=== PATIENT | female | born 1950 | race Caucasian/White ===

== ENCOUNTER 2022-06-30 12:41 | Emergency (ER) | payer MEDICARE, BC, SELFPAY ==
[2022-06-30 12:59] VITALS: BP 128/63; PULSE 70; RESP 14; TEMP 36.4; O2SAT 98; BMI 27.4
--- NOTE | 2022-06-30 13:14 | ED_ITS ---
HPI - Chest Pain General Chief Complaint: Chest Pain Stated Complaint: Chest pain Time Seen by Provider: 06/30/22 12:47 History of Present Illness HPI narrative: This 71-year-old female went to clinic this morning reporting some chest discomfort that occurred in the night and was sent here for further evaluation and treatment. She states that she awoke and felt some pain in her left upper anterior chest. She fell back asleep may be half an hour later and since then has not had any pain except she feels some discomfort or heaviness in this area. She did not have any nausea, vomiting, lightheadedness, shortness of breath, or diaphoresis. She does not have any exercise intolerance. She did have a stroke a couple years ago and is taking Eliquis. She also has a pacemaker. Related Data Home Medications Medication Instructions Recorded Confirmed apixaban 5 mg tablet (Eliquis) mg 06/30/22 aspirin 81 mg capsule 81 mg PO DAILY 06/30/22 06/30/22 atorvastatin 10 mg tablet mg 06/30/22 sotalol 80 mg tablet mg 06/30/22 Allergies Allergy/AdvReac Type Severity Reaction Status Date / Time No Known Drug Allergies Allergy Verified 06/30/22 12:58 Review of Systems Status of ROS Reports: 10 or more systems reviewed and unremarkable except as noted in History and below Narrative Constitutional: No fevers, no weight gain or loss. Eyes: No discharge. No vision changes. HENT: No congestion, no sore throat, no ear pain. Cardiovascular: No palpitations. Chest: Discomfort in the left upper anterior chest as described above. Respiratory: No shortness of breath, no wheezes, no cough. Gastrointestinal: No abdominal pain, no vomiting, no diarrhea. Genitourinary: No dysuria, no hematuria. Musculoskeletal: Normal range of motion. Skin: No rashes, no pruritis. Neurological: No dizziness, weakness, sensory change, speech change. Endo/Heme/Allergies: No bruising or bleeding. No polydipsia. Pysch: no suicidality, no anxiety, no insomnia. All other systems reviewed and are negative. PFSH PFS Social History Smoking Status: Never smoker Non-prescribed substance use: denies use Exam Narrative Exam Narrative: Constitutional: Well-developed, well-nourished, no acute distress. HEENT: Normocephalic, atraumatic. Neck: Normal range of motion. Nontender. Supple. Heart: Regular. No murmurs. Normal rate. Intact distal pulses. Lungs: Clear to auscultation. No chest discomfort. No wheezes, rhonchi, or rales. Abdomen: Normal bowel sounds. Nontender. No rebound tenderness. Genitalia: Deferred. Back: No midline tenderness. Normal range of motion. Extremities: Normal range of motion. No injury. Skin: Intact. No rash. Warm. No erythema or pallor. Neurologic: No altered sensation. No weakness. Alert and oriented. Psychiatric: No suicidality. No anxiety or depression. No insomnia. Nursing notes and vitals signs are reviewed. Const Vital Signs, click to edit/add: Vital Signs - 24 hr 06/30/22 12:59 Temperature 97.5 F L Pulse Rate [Pulse Oximeter] 70 Respiratory Rate 14 Blood Pressure [Right Upper Arm] 128/63 Pulse Oximetry 98 Oxygen Delivery Method Room Air Course Vital Signs Vital signs: Initial Vital Signs Temperature 97.5 F L 06/30/22 12:59 Temperature Source Temporal Artery Scan 06/30/22 12:59 Pulse Rate 70 06/30/22 12:59 Pulse Rhythm 06/30/22 12:59 Respiratory Rate 14 06/30/22 12:59 Blood Pressure 128/63 06/30/22 12:59 Blood Pressure Mean 84 06/30/22 12:59 Pulse Oximetry 98 06/30/22 12:59 Oxygen Delivery Method 06/30/22 12:59 Vital Signs Temperature 97.5 F L 06/30/22 12:59 Pulse Rate 70 06/30/22 12:59 Respiratory Rate 14 06/30/22 12:59 Blood Pressure 128/63 06/30/22 12:59 Pulse Oximetry 98 06/30/22 12:59 Oxygen Delivery Method 06/30/22 12:59 Temperature 97.5 F L 06/30/22 12:59 Pulse Rate 70 06/30/22 12:59 Respiratory Rate 14 06/30/22 12:59 Blood Pressure 128/63 06/30/22 12:59 Pulse Oximetry 98 06/30/22 12:59 Oxygen Delivery Method 06/30/22 12:59 MDM - Chest Pain MDM Narrative Medical decision making narrative: This patient comes in with chest discomfort as described above. She does not have any symptoms that are strongly suspicious of a cardiac or pulmonary source for this. She is on Eliquis for a stroke that occurred a couple years ago. Since then she has been doing well. She does have a pacemaker. She does not report any exercise intolerance. Her EKG today shows a paced rhythm without any evidence of ST or T-wave abnormalities. Additionally her lab results returned completely normal. In particular her troponin is 0. These results are reassuring to the patient. Most likely this is a chest wall pain or atypical chest pain. She states that she did lift a 40 lb bag of water softener salt recently and may have cause some muscle strain that explains her pain currently. Lab Data Labs: Lab Results 06/30/22 06/30/22 06/30/22 Range/Units 13:25 13:25 13:25 WBC 7.99 (4.50-11.00) K/uL RBC 4.28 (4.00-5.20) m/uL Hgb 12.9 (12.0-16.0) gm/dL Hct 39.3 (33.0-51.0) % MCV 92 (80-100) fL MCH 30 (26-34) pg MCHC 33 (32-36) gm/dL RDW Coeff of Kal 12.2 (11.5-15.5) % Plt Count 255 (140-440) K/uL Neut % (Auto) 52.7 (42.0-72.0) % Lymph % (Auto) 32.8 (20-44) % [place] % (Auto) 9.9 (0.0-11.0) % Eos % (Auto) 3.9 (0.0-7.0) % Baso % (Auto) 0.4 (0.0-3.0) % Neut # (Auto) 4.22 (1.7-7.0) K/uL Lymph # (Auto) 2.62 (0.90-2.90) K/uL [place] # (Auto) 0.80 (0.00-0.90) K/UL Eos # (Auto) 0.31 (0.00-0.50) K/uL Baso # (Auto) 0.03 (0.00-0.30) K/uL Abs Immat Gran (auto) 0.02 (0.00-0.30) K/uL Imm/Tot Granulo (auto) 0.3 % Sodium 142 (135-149) mmol/L Potassium 4.8 (3.6-5.1) mmol/L Chloride 110 (96-114) mmol/L Carbon Dioxide 27 (20-32) mmol/L Creatinine 0.7 (0.5-1.5) mg/dL Estimated Creat Clear 41.40 Estimated GFR 93 ml/min POC Troponin I 0.00 L (0.01-0.04) ng/ml ECG Data Attestation: I personally reviewed and interpreted this ECG as follows: Interpretation: Atrial paced rhythm. Rate is 70 beats per minute. There are no ST or T-wave abnormalities. Discharge Plan Discharge Clinical Impression: Acute chest wall pain Patient Disposition: Home, Self-Care Condition: Stable Additional Instructions: Use [id number] medicines as needed and directed. Follow up with MD or return if worsening. Prescriptions: No Action atorvastatin 10 mg tablet Label Comments: TAKE 1 TABLET (10 MG) BY MOUTH AT BEDTIME. sotalol 80 mg tablet Label Comments: TAKE ONE TABLET BY MOUTH (80MG) EVERY 12 HOURS Eliquis 5 mg tablet aspirin 81 mg capsule 81 mg PO DAILY Follow Up/Referrals: Provider,Not a Local [Primary Care Provider] - Stand Alone Forms: [facility] Info Instructions
--- OUTSIDE RECORDS SUMMARY | 2022-06-30 13:25 | XMS_ITS | Clinical Summary ---
:1950 Author Organization [facility] [place] [address] Care Team Providers Name Role Phone Jordana Huddleston MD Primary Care Provider Allergies No known active allergies Medications Medication Sig Dispensed Refills Start Date End Date Status cholecalciferol Take 2,000 Units by 0 Active (VITAMIN D3) 1,000 mouth once daily. unit tablet acetaminophen Take 2 tablets by 0 01/18/2020 Active (TYLENOL) 325 mg mouth every 6 hours tablet if needed. Max acetaminophen dose: 4000mg in 24 hrs. aspirin (ECOTRIN) 81 Take 1 tablet by 0 04/29/2020 Active mg enteric coated mouth once daily tabletIndications: with a meal. Paroxysmal atrial fibrillation (HC) sotaloL (BETAPACE) 80 Take 1 Tablet (80 180 Tablet 2 2 Active mg tabletIndications: mg) by mouth in the Atrial fibrillation morning and 1 and flutter (HC) Tablet (80 mg) in the evening. atorvastatin Take 1 Tablet (10 90 Tablet 4 04/19/2022 Active (LIPITOR) 10 mg mg) by mouth at tabletIndications: bedtime. Ischemic stroke (HC) apixaban (Eliquis) 5 Take 1 Tablet (5 180 Tablet 4 04/19/2022 Active mg tabletIndications: mg) by mouth two Rapid atrial times daily. fibrillation (HC) Active Problems Problem Noted Date RBBB (right bundle branch block) 2020 Sinus node dysfunction 2020 Cardiac pacemaker 2020 Occlusion of intracranial artery with cerebral infarct ion 01/14/2020 Atrial fibrillation with rapid ventricular response Hemiparesis, left 01/14/2020 Special screening for malignant neoplasms, colon 06/24 Overview: 11 years from last colonoscopy - decline s repeat - will do FOBT this year. Jordana Huddleston MD............ 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 Disorder of bone and cartilage 07/03/2006 Overview: Encounters Date Type Specialty Care Team Description 04/19/2022 Office Visit Jordana Huddleston M anagement; Lab MD Carine (Patient is idalmis sanchez) 04/19/2022 Travel from Last 3 Months Immunizations Name Administration Dates Next Due COVID-19 vaccine (Moderna 06/01/2021, 08/28/2020 100mcg/0.5mL) PF, MDV Influenza A (H1N1), Inactivated (Age 0107/24/2009 >=3 Years) Influenza Virus, Unspecified 05/06/2016, 05/22/2015 Influenza, High-dose Inactivated 05/12/2021, 05/03/2020, , 05/09/2018 Influenza, IIV3 (Age >=3 years) 05/06/2016, 05/16/2014, 11/0 08/2012, 04/29/2012, 05/12/2011, 04/25/2010, 04/22/2009, 05/01/2008, 07/03/2006 Influenza, Inactivated IIV3 (Age 65+ 05/13/2019, 04/18/2017 Years) Preserv Free Pneumococcal Poly,23-Valent 07/22/2018, 07/04/2018 (Pneumovax) Pneumococcal conj 13-Valent (Prevnar 07/18/2017 13) Td (Age >=7 Years) 02/26/1997 Tdap 02/23/2021, 08/18/2008 Zoster (Shingrix-RZV, recombinant) 11/27/2018, 08/01/2018, 0 10/21/2017, 07/23/2017 Zoster (Zostavax-ZVL, live) 04/29/2012 Family History Medical History Relation Name Comments Hypertension Father Other Maternal Uncle brain aneurysm - age 45 Other Mother brain aneurysm - age 67 Cancer No Family History Cancer-breast No Family History Cancer-colon No Family History Cancer-ovarian No Family History Cancer-prostate No Family History Relation Name Status Comments Father Maternal Uncle Mother Social History Tobacco Use Types Packs/Day Years Used Date Never Smoker Smokeless Tobacco: Never Used Tobacco Cessation: Counseling Given: Yes Alcohol Use Standard Drinks/Week Comments Not Currently 0 (1 standard drink = 0.6 oz pure alcoho l) rare Alcohol Habits Answer Date Recorded How often do you have a drink containing alcohol? Monthly or less 12/18/2019 How many drinks containing alcohol do you have on a 1 or 2 12/18/2019 typical day when you are drinking? How often do you have six or more drinks on one Never 12/18/2019 occasion? Comment: rare 02/23/2021 Sex Assigned at Date Recorded Not on file Obstetrics History Para Term AB IAB SAB Ectopic Multiple Living Live Births 2 2 2 2 Date Outcome GA Total Labor/2nd/3rd Weight Sex Delivery Anes PTL Silvia A 1 A5 Name Clin Labor Term Term Last Filed Vital Signs Vital Sign Reading Time Taken Comments Blood Pressure 126/84 04/19/2022 10:48 AM CDT Pulse 78 04/19/2022 10:48 AM CDT Temperature 36.4 ??C (97.6 ??F) 09/30/2020 9:37 AM TELERADIOLOGIST Respiratory Rate 14 2020 6:34 AM TELERADIOLOGIST Oxygen Saturation 98% 10/20/2021 2:09 PM CDT Inhaled Oxygen Concentration - - Weight 70.7 kg (155 lb 12.8 oz) 04/19/2022 10:48 AM CDT Height 156.1 cm (5' 1.46) 10/20/2021 2:09 PM CDT Body Mass Index 29 10/20/2021 2:09 PM CDT Plan of Treatment Upcoming Encounters Date Type Specialty Care Team Description 10/12/2022 Cardiac Device Check 10/12/2022 Office Visit Juwan Meehan MD [address] [facility] [address] [place] [address] (Wo rk) Health Maintenance Due Date Last Done Comments COVID-19 vaccine series (5 - 12/29/2021 11/03/2021, 021, Booster for Moderna series) 09/25/2020, Addition al history exists Mammogram for age 45-75 02/22/2022 02/22/2021, 05/01/2018, 04/18/2017, Additional history exists Medicare Wellness for age 65+ 02/23/2022 02/23/2021, 2017, 04/18/2017 Influenza for age 65+ 03/23/2022 05/12/2021, 05/03/2020, 05/15/2019, Additional history exists BMI (ht and wt on same day) for 10/20/2022 10/20/2021, 08/0 10/2020, age 18+ 09/30/2020, Additional history exists Depression screening for age 12+ 04/19/2023 04/19/2022, 10/2020, 02/23/2021, Additional history exists Lipids for age 45-75 04/19/2027 04/19/2022, 02/23/2021, 01/15/2020, Additional history exists Tetanus booster 02/23/2031 02/23/2021, 08/18/2008, 02/26/1997 Colonoscopy through age 75 04/12/2031 04/12/2021, , 04/12/2021, Additional history exists Hepatitis C screening for age Completed 06/11/2013 18-79 Pneumococcal series for age 65+ Completed 07/22/2018, 06/22, 07/18/2017 Zoster (shingles) series for age Completed 11/27/2018, 04/2019, 50+ 10/21/2017, Additional history exists Tdap Completed 02/23/2021, 08/18/2008 DEXA/DXA scan for age 65+ Completed 03/02/2021, 03/27/2017 , 06/11/2013, Additional history exists Procedures Procedure Name Priority Date/Time Associated Diagnosis Comme nts LIPID PANEL Routine 04/19/2022 11:55 Ischemic stroke (HC) Res ults for this AM CDT procedure are i n the results section. HEMOGLOBIN A1C Routine 04/19/2022 11:55 Hyperglycemia Results for this SCREENING AM CDT procedure are i n the results section. ALT (SGPT) Routine 04/19/2022 11:55 Paroxysmal atrial Result s for this AM CDT fibrillation (HC) procedure are in the results section. AST (SGOT) Routine 04/19/2022 11:55 Paroxysmal atrial Result s for this AM CDT fibrillation (HC) procedure are in the results section. CREATININE Routine 04/19/2022 11:55 Paroxysmal atrial Result s for this AM CDT fibrillation (HC) procedure are in the results section. BUN Routine 04/19/2022 11:55 Paroxysmal atrial Result s for this AM CDT fibrillation (HC) procedure are in the results section. POTASSIUM Routine 04/19/2022 11:55 Paroxysmal atrial Result s for this AM CDT fibrillation (HC) procedure are in the results section. from Last 3 Months Results HEMOGLOBIN A1C SCREENING (04/19/2022 11:55 AM CDT) P athologist Signature HEMOGLOBIN A1C 5.6 <=6.4 % 04/20/2022 [facility] SCREENING 9:20 AM CDT LABORATORY[facility] Specimen Anatomical Collection Method / Collection Time Recei jorgito Time (Source) Location / Volume Laterality Blood BLOOD SPECIMEN / Venipuncture / 04/19/2022 11:55 04/19 Unknown Unknown AM CDT 11:55 AM CDT Narrative [facility] 04/20/2022 9:20 AM CDT ? (<5.7%) ?Normal ? (5.7% to 6.4%) ? Indicates pr ediabetes ? (>=6.5%) ? Confirms diabetes Falsely low levels may be seen with: Recent Transfusion, Recent Significant B lood Loss, Hemolytic Diseases, or Falsely elevated levels may be seen with : Untreated Anemias, Splenectomy Jordana Huddleston MD CHEMISTRY Performing Organization Address City/State/ZIP Code Phon e Number [facility] [address] [place] [address] LABORATORY-[facility] LABORATORY BUN (04/19/2022 11:55 AM CDT) athologist Signature BUN 18 8 - 25 04/19/2022 [facility] mg/dL 12:52 PM CDT [facility] Specimen Anatomical Collection Method / Collection Time Recei jorgito Time (Source) Location / Volume Laterality Blood BLOOD SPECIMEN / Venipuncture / 04/19/2022 11:55 04/19 Unknown Unknown AM CDT 11:55 AM CDT Juwan Meehan MD CHEMISTRY Performing Organization Address City/State/ZIP Code Phon e Number [address] [address] CENTER POTASSIUM (04/19/2022 11:55 AM CDT) athologist Signature POTASSIUM 4.6 3.5 - 5.0 04/19/2022 [facility] mmol/L 12:44 PM CDT [facility] Specimen Anatomical Collection Method / Collection Time Recei jorgito Time (Source) Location / Volume Laterality Blood BLOOD SPECIMEN / Venipuncture / 04/19/2022 11:55 04/19 Unknown Unknown AM CDT 11:55 AM CDT Juwan Meehan MD CHEMISTRY Performing Organization Address City/State/ZIP Code Phon e Number [address] [address] CENTER (ABNORMAL) CREATININE (04/19/2022 11:55 AM CDT) athologist Signature CREATININE 0.82 0.57 - 1.11 04/19/2022 [facility] mg/dL 12:50 PM CDT [facility] eGFR 77 (L) >90 04/19/2022 [facility] mL/min/1.73 12:50 PM CDT [place] [address] CENTER Comment: As of 2021, eGFR is calcu lated by the CKD-EPI creatinine equation without race adjustment. eGFR can be inf luenced by muscle mass, exercise, and diet. The reported eGFR is an estimation only and is only applicable if the renal function is stable. Specimen Anatomical Collection Method / Collection Time Recei jorgito Time (Source) Location / Volume Laterality Blood BLOOD SPECIMEN / Venipuncture / 04/19/2022 11:55 04/19 Unknown Unknown AM CDT 11:55 AM CDT Juwan Meehan MD CHEMISTRY Performing Organization Address City/[facility]/ZIP Code Phon e Number [address] [address] CENTER ALT (SGPT) (04/19/2022 11:55 AM CDT) athologist Signature ALT (SGPT) 16 8 - 45 IU/L 04/19/2022 [facility] 12:53 PM CDT [facility] Specimen Anatomical Collection Method / Collection Time Recei jorgito Time (Source) Location / Volume Laterality Blood BLOOD SPECIMEN / Venipuncture / 04/19/2022 11:55 04/19 Unknown Unknown AM CDT 11:55 AM CDT Juwan Meehan MD CHEMISTRY Performing Organization Address City/[facility]/ZIP [facility] Phon e Number [address] [address] CENTER AST (SGOT) (04/19/2022 11:55 AM CDT) athologist Signature AST (SGOT) 20 2 - 40 IU/L 04/19/2022 [facility] 12:52 PM CDT [facility] Specimen Anatomical Collection Method / Collection Time Recei jorgito Time (Source) Location / Volume Laterality Blood BLOOD SPECIMEN / Venipuncture / 04/19/2022 11:55 04/19 Unknown Unknown AM CDT 11:55 AM CDT Juwan Meehan MD CHEMISTRY Performing Organization Address City/[facility]/ZIP [facility] Phon e Number [address] [address] CENTER LIPID PANEL (04/19/2022 11:55 AM CDT) [facility] Method Time Signature CHOLESTEROL,TOTAL 120 100 - 199 04/19/2022 [facility] mg/dL 12:53 PM CDT [facility] TRIGLYCERIDES 72 <150 04/19/2022 [facility] mg/dL 12:53 PM CDT [facility] HDL CHOLESTEROL 53 >40 mg/dL 04/19/2022 [facility] 12:53 PM T [facility] NON-HDL 67 <145 04/19/2022 [facility] CHOLESTEROL mg/dl 12:53 PM [facility] CHOL/HDL RATIO 2.26 <4.50 04/19/2022 [facility] 12:53 PM T [facility] LDL CHOLESTEROL 53 <=130 04/19/2022 [facility] mg/dL 12:53 PM T [facility] VLDL CHOLESTEROL 14 <=30 04/19/2022 [facility] mg/dL 12:53 PM T [facility] PROVIDER ORDERED FASTING 04/19/2022 [facility] STATUS 12:53 PM T [facility] Specimen Anatomical Collection Method / Collection Time Recei jorgito Time (Source) Location / Volume Laterality Blood BLOOD SPECIMEN / Venipuncture / 04/19/2022 11:55 04/19 Unknown Unknown AM CDT 11:55 AM CDT Jordana Huddleston MD CHEMISTRY Performing Organization Address City/State/ZIP Code Phon e Number [facility] [address] [place] [address] CENTER from Last 3 Months Insurance Payer Benefit Plan / Subscriber ID Effective Dates Phone Addre ss Type Group MEDICARE PART B MEDICARE PART B [id number] 2016-Presen ATTN: CLAIMS - HB USE ONLY HB ONLY t [address] [place] [address] MEDICARE PART A MEDICARE PART A [id number] 2016-Presen ATTN: CLAIMS - HB USE ONLY HB ONLY t [address] [place] [address] [employer] BLUE CROSS [id number] 2017-[place] [address] [place], [place] ONLY [id number] BLUE CROSS MR BLUE CROSS [id number] 2017-Presen [address] [address] [place] [address] [id number] Advance Directives Documents on File Type Date Recorded Patient Materials Handler Explanati on Healthcare Directive 08/24/2010 08/24/2010 Latest Code Status on File Code Status Date Activated Date Inactivated Comments Full Code 08/09/2020 4:30 PM 2020 4:12 PM Code Status Discussion: Discussed Full Code 04/21/2020 2:23 PM 04/21/2020 5:51 PM Code Status Discussion: Per Existing Order Full Code 04/06/2020 4:06 PM 04/07/2020 3:01 PM Code Status Discussion: Discussed Full Code 01/15/2020 4:02 PM 01/18/2020 9:25 PM Care Teams Form Setter/Driver Relationship Specialty Start Date End Date Jordana Huddleston MD PCP - General 07/02/06 [address] [place] [address] [place] [address]
[2022-06-30 13:49] LABS: Basophils Absolute Auto 0.03 K/uL (0.00-0.30); Basophils Percent Auto 0.4 % (0.0-3.0); Eosinophils Absolute Auto 0.31 K/uL (0.00-0.50); Eosinophils Percent Auto 3.9 % (0.0-7.0); Hematocrit 39.3 % (33.0-51.0); Hemoglobin* 12.9 gm/dL (12.0-16.0); Immature Granulocytes Abs Auto 0.02 K/uL (0.00-0.30); Immature Granulocytes Pct Auto 0.3 %; Lymphocytes Absolute Auto 2.62 K/uL (0.90-2.90); Lymphocytes Percent Auto 32.8 % (20-44); Mean Corpuscular HGB Conc 33 gm/dL (32-36); Mean Corpuscular Hemoglobin 30 pg (26-34); Mean Corpuscular Volume 92 fL (80-100); Monocytes Percent Auto 9.9 % (0.0-11.0); Neutrophils Absolute Auto 4.22 K/uL (1.7-7.0); Neutrophils Percent Auto 52.7 % (42.0-72.0); Platelet Count* 255 K/uL (140-440); RDW Coefficient of Variation % 12.2 % (11.5-15.5); Red Blood Count 4.28 m/uL (4.00-5.20); White Blood Count* 7.99 K/uL (4.50-11.00)
[2022-06-30 13:53] LABS: Slide Review Reflex No
[2022-06-30 14:00] LABS: Chloride* 110 mmol/L (96-114); Potassium* 4.8 mmol/L (3.6-5.1); Sodium* 142 mmol/L (135-149)
[2022-06-30 14:03] LABS: Blood Urea Nitrogen* 18 mg/dL (7-30); Carbon Dioxide* 27 mmol/L (20-32); Creatinine* 0.7 mg/dL (0.5-1.5); Estimated Glomerular Filt Rate 93 ml/min; Glucose* 86 mg/dL (60-115)
[2022-06-30 14:04] LABS: Calcium* 9.6 mg/dL (8.4-10.6)
[2022-06-30 14:10] VITALS: BP 112/62; PULSE 70; RESP 16; O2SAT 97
== END 2022-06-30 14:27 | disposition home or self-care (01) ==
PROVIDERS: Emergency Provider Emergency Medicine Emergency Medical Services
DX: R07.89 Other chest pain (principal)
CPT/HCPCS: 36415; 80048; 84484; 85025; 93005; 99284; 99285

== ENCOUNTER 2023-05-02 11:59 | Outpatient (CLI) | payer MEDICARE, BC, SELFPAY ==
[2023-05-02] MEDS: TETRACAINE 0.5% OPHTH 1 DROP EYE-LEFT ×3 (12:15→12:51)
[2023-05-02] MEDS: BRIMONIDINE TARTRATE 0.2% OPHTH 1 DROP EYE-LEFT ×2 (12:16→12:55)
[2023-05-02 12:17] VITALS: BP 119/67; RESP 16; TEMP 36.4; O2SAT 97
--- NOTE | 2023-05-02 13:14 | W.PM.OPTPROC ---
Procedure Note Date of procedure: 05/02/23 Will [facility] bill your pro fee for this procedure?: Yes Procedure Description: SURGEON: Cary Alejandro MD PREOPERATIVE DIAGNOSIS: Posterior capsular opacity, left eye POSTOPERATIVE DIAGNOSIS: Posterior capsular opacity, left eye PROCEDURE: YAG laser capsulotomy, left eye ANESTHESIA: Topical. ESTIMATED BLOOD LOSS: None PATHOLOGY SPECIMEN: None COMPLICATIONS: None INDICATIONS: See consult note for details. The risks, benefits and alternatives of the procedure were explained to the patient, who elected to proceed and signed informed consent to do so. PROCEDURE: The patient was brought to the pre-holding area where the left eye was identified as the operative eye. I placed my initials above this eye. The patient received 2 sets of 1 drop of 0.5% tetracaine and 1 drop of 1% tropicamide. They also received 1 drop of 0.2% brimonidine. They received 1 drop of 0.5% tetracaine immediately prior to bringing them back for the procedure. The patient was then brought to the procedure room where the left eye was again identified as the operative eye. A YAG Rogelio capsulotomy lens was placed on the eye. The laser was administered using a total number of 8 shots with an energy of 2.4 mJ per shot for a total energy of 19 mJ. The patient tolerated the procedure well. DISPOSITION: The patient was taken back to the pre-holding area and given 1 drop of 0.2% brimonidine in the left eye. They were discharged to home in stable condition. The patient was instructed to call me or go to the emergency department with any sudden change, including dramatic loss of vision, severe pain in the eye or eyebrow region, nausea, or vomiting. The patient was instructed to use the 0.2% brimonidine 1 drop 2 times a day in the left eye for 1 week. The patient will follow up in the clinic in 1-2 weeks
== END 2023-05-02 13:02 | disposition home or self-care (01) ==
PROVIDERS: PCP Internal Medicine; Visit Provider Ophthalmology
DX: H26.9 Unspecified cataract (principal)
CPT/HCPCS: 66821; A9270

== ENCOUNTER 2023-10-10 12:28 | Outpatient (CLI) | payer MEDICARE, BC, SELFPAY | END 2023-10-10 12:29 | disposition home or self-care (01) | PROVIDERS: PCP Internal Medicine; Visit Provider Physician Assistant | DX: R22.0 Localized swelling, mass and lump, head (principal); R68.84 Jaw pain | CPT/HCPCS: 86735 ==

== ENCOUNTER 2025-05-09 06:43 | Emergency (ER) | payer MEDICARE, BC, SELFPAY ==
--- OUTSIDE RECORDS SUMMARY | 2003-06-09 08:30 | XMS_ITS | Continuity of Care Document ---
Author Organization [facility] Address [address] [address] [place] [address] Phone Care Team Providers Care Insurance Underwriting Assistant Name Role Phone Unavailable Unavailable Unavailable Advance Directives Directive Yes / No Effective Date File Name No Information Encounters Encounter Description Practice Location Reason(s) For Visit Diagnoses Date Provider Providers Copied on Encounter [facility], [address] [address], [place], [place], [id number], tel:[phone] [facility] No Information 3 No Information Referring Provider: Eulalia Woods MD, [address], [address]. tel:[phone] Family History Family Member Type Diagnosis Age At Onset No Information Payers Payer name Insurance type Covered republican ID Authoriza tion(s) [employer] CI [id number] Social History Type Description Quantity Date Captured Comments Sex Female Smoking Status No Information Chief Complaint And Reason For Visit No Information Reason For Referral Reason For Referral No Information History Of Present Illness Encounter Date Complaint History Of Prese nt Illness No Information Functional Status Date Functional Assessmen t No Information Instructions Date Instruction Additional Infor mation No Information Assessments Type Assessment Date No Information Patient Care Teams Name Effective Dates (start - stop) Status Members No Information
--- OUTSIDE RECORDS SUMMARY | 2003-06-09 08:30 | XMS_ITS | Continuity of Care Document ---
Author Organization [facility] Address [address] [address] [place] [address] Phone Care Team Providers Care Gizzard Peeler Name Role Phone Unavailable Unavailable Unavailable Advance Directives Directive Yes / No Effective Date File Name No Information Encounters Encounter Description Practice Location Reason(s) For Visit Diagnoses Date Provider Providers Copied on Encounter [facility], [address] [address], [place], [place], [id number], tel:[phone] [facility] No Information 3 No Information Referring Provider: Eulalia Woods MD, [address], [address]. tel:[phone] Family History Family Member Type Diagnosis Age At Onset No Information Payers Payer name Insurance type Covered green party ID Authoriza tion(s) [employer] CI [id number] Social History Type Description Quantity Date Captured [...]
--- OUTSIDE RECORDS SUMMARY | 2025-05-09 06:44 | XMS_ITS | Clinical Summary ---
Author Organization [facility] Address [address] [place] [address] Care Team Providers Care Hydraulic Boom Operator Name Role Phone Karen Greco MD Primary Care Provider [phone] Juwan Meehan MD Unavailable [phone] Allergies No known active allergies Medications cholecalciferol (VITAMIN D3) 1,000 unit tablet Take 2,000 Units by mouth once daily. Active acetaminophen (TYLENOL) 325 mg tablet Take 2 tablets by mouth every 6 hours if needed. Max acetaminophen dose: 4000mg in 24 hrs. 0 01/18/20 20 Active sotaloL 80 mg tabletIndication s:Paroxysmal atrial fibrillation (HC),Atrial fibrillation and flutter (HC) Take 0.5 Tablets (40 mg) by mouth every 12 hours. 90 Tablet 3 01/09/20 25 Active apixaban (Eliquis) 5 mg tabletIndication s:Paroxysmal atrial fibrillation (HC) Take 1 Tablet (5 mg) by mouth two times daily. 180 Tablet 3 01/09/20 25 Active atorvastatin (LIPITOR) 10 mg tabletIndication s:H/O ischemic right MCA stroke Take 1 Tablet (10 mg) by mouth at bedtime. 90 Tablet 3 04/08/20 25 Active Active Problems Problem Noted Date Diagnosed Date Osteopenia 03/13/2023 Overview (03/13/2023): 02/2021: DEXA scan with lowest T score -1.9 RBBB (right bundle branch block) 2020 Sinus node dysfunction, s/p pacemaker placement 2020 Cardiac pacemaker 2020 Occlusion of intracranial artery with cerebral i nfarction 01/14/2020 Special screening for malignant neoplasms, colon 06/24/2014 Overview (06/24/2014): 11 years from last colonoscopy - declines repeat - will do FOBT this year. Jordana Manuel MD............ 11:54 AM 06/24/2014 Paroxysmal atrial fibrillation 03/06/2008 Overview (03/04/2024): - First diagnosed in 2007 - Initially managed with propafenone. Transitioned to sotalol in 2012 due to right bundle branch block - 01/14/2020: Noted to be in atrial fibrillation at time of presentation for CVA - 01/17/2020: SP AAI pacemaker placement - 04/06/2020: SP catheter ablation for atrial fibrillation as well as typical atrial flutter - Recurrent atrial arrhythmias status post cardioversion 04/21/2020 (treated with sotalol, diltiazem, and digoxin) - SP re-isolation of the pulmonary veins 08/09/2020 Dysthymic disorder 11/26/2007 H/O ischemic right MCA stroke Overview (03/12/2023): Status post tPA administration and thrombectomy Resolved Problems Problem Noted Date Diagnosed Date Resolved Date Atrial fibrillation with rap id ventricular response 01/14/2020 03/13/2023 Hemiparesis, left 01/14/2020 03/15/2023 Vitamin D deficiency 09/08/2009 023 Palpitations 12/04/2007 03/13/2023 Other malignant neoplasm of skin, site unspecified 08/13/2007 03/13/2023 Overview (08/13/2007): 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 Disorder of bone and cartilage 07/03/2006 03/12/2023 Overview (09/08/2009): Encounters Date Type Department Care Team Description 04/08/2025 4:10 PM CDT Ancillary Procedure [facility] [address] [facility] [place] [address] 04/08/2025 2:10 PM CDT Office Visit [facility] [address] [facility] [place] [address] Karen Greco MD Medication Management 04/08/2025 Travel 04/06/2025 11:30 AM CDT Orders Only [facility] [address] [place] [address] Lab, [facility] 04/06/2025 Travel 03/17/2025 9:40 AM CDT Ancillary Procedure [facility] [address] [place] [address] 03/17/2025 Travel from Last 3 Months Immunizations Immunization Administration Dates Next Due COVID-19 vaccine (Moderna 100mcg/0.5mL) PFMDV 06/01/2021,08/28/2020 Influenza A (H1N1), Inactiva avani (Age >=3 Years) 07/24/2009 Influenza Virus, Unspecified 05/06/2016,05/22/20 15 Influenza, High-dose Inactivated 024,05/12/2021,05/03/2020,2018,05/09/2018 Influenza, High-dose Quadriv alent Inactivated 05/08/2023,05/05/2022,05/11/2021,2019 Influenza, IIV3 (Age >=3 years) 05/06/20 16,05/16/2014,05/24/2013,2011,05/12/2011,04/25/2010,04/22/2009,1 ,07/03/2006 Influenza, Inactivated IIV3 (Age 65+ Years) Preserv Free 05/13/2019,04/18/2017 Pneumococcal Poly,23-Valent (Pneumovax) 07/22/2018,07/04/2018 Pneumococcal conj 13-Valent (Prevnar 13) 07/18/2017 Td (Age >=7 Years) 02/26/1997 Tdap 02/23/2021,08/18/2008 Zoster (Shingrix-RZV, recombinant) 11/27,08/01/2018,10/21/2017,2017 Zoster (Zostavax-ZVL, live) 04/29/2012 Family History Medical History Relation Name Comments Hypertension Father Other Maternal Uncle brain aneurys m - age 45 Other Mother brain aneurysm - age 67 Cancer No Family History Cancer-breast No Family History Cancer-colon No Family History Cancer-ovarian No Family History Cancer-prostate No Family History Relation Name Status Comments Father Maternal Uncle Mother Social History Tobacco Use Types Packs/Day Years Used Date Smoking Tobacco: Never Smokeless Tobacco: Never Tobacco Cessation:Counseling Given: Yes Alcohol Use Standard Drinks/Week Comments Yes 0 (1 standard drink = 0.6 oz pur e alcohol) rare PHQ-2 Answer Date Recorded PHQ-2 TOTAL SCORE 0 04/08/2025 Social Connections Answer Date Recorded Do you often feel lonely or isolated from those around you? 0 06/03/2024 Alcohol Use Answer Date Recorded How often do you have a drink containing alcohol ? 1 04/08/2025 How many drinks containing a lcohol do you have on a typical day when you are drinking? 0 04/08/2025 How often do you have five or more drinks on one occasion? 0 04/08/2025 Financial Resource Strain Answer Date R ecorded Difficulty of Paying Living Expenses 3 06/03/2024 Difficulty of Paying Living Expenses Not on file 06/03/2024 Food Insecurity Answer Date Recorded Do you worry your food will run out before you are able to buy more? 1 06/03/2024 Transportation Needs Answer Date Record ed Does lack of transportation keep you from medica l appointments? 1 06/03/2024 Does lack of transportation keep you from work, meetings or getting things that you need? 1 06/03/2024 Housing Stability Answer Date Recorded What is your housing situation today? 1 06/03/2024 Utilities Answer Date Recorded Do you have trouble paying f or utilities (for example, heat, electricity, water, phone)? 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 Not on file Not on file Not on file Obstetrics History Para Term AB IAB SAB Ectopic Multiple Livin g Live Births 2 2 2 2 Date Outcome GA Total Labor Labor/2nd/3rd Weight Sex Type Anes PTL Silvia A1 A5 Name Clin Term Term Last Filed Vital Signs Vital Sign Reading Time Taken Comments Blood Pressure 132/76 04/08/2025 2:50 PM CDT Pulse 72 04/08/2025 2:50 PM CDT Temperature 36.4 C (97.6 F) 09/30/2020 9:37 AM LAUNDRY MANAGER Respiratory Rate 14 2020 6:34 AM LAUNDRY MANAGER Oxygen Saturation 97% 01/08/2025 2:18 PM CDT Inhaled Oxygen Concentration - - Weight 75.6 kg (166 lb 11.2 oz) 04/08/2025 2:50 PM CDT Height 157.5 cm (5' 2.01) 04/08/2025 2:50 PM CD T Body Mass Index 30.48 04/08/2025 2:50 PM CDT Plan of Treatment Upcoming Encounters Date Type Department Care Team (Late st Contact Info) Description 05/13/2025 Cardiac Device Check Elias Borges [facility] [place] [facility] [place] [phone] Health Maintenance Due Date Last Done Comments RSV vaccine for adults or (1 - Risk 60-74 years 1-dose series) 2011 Medicare Wellness for age 65+ 02/24/2022 02/23/2021, 05/08/2018, 04/18/2017 COVID-19 vaccine series ( season) 2025 05/07/2024, 04/26/2023, 05/16/2022, Additional history exists Influenza Vaccine (#1) 2025 , 05/12/2021, 05/03/2020, Additional history exists Mammogram for age 45-75 03/17/2026 03/17/20, 03/12/2024, 03/08/2023, Additional history exists BMI (ht and wt on same day) for age 18+ 04/08/2026 04/08/2025, 01/08/2025, 11/29/2023, Additional history exists Depression screening for age 12+ 04/08/2026 04/08/2025, 03/04/2024, 04/19/2022, Additional history exists Lipids for age 45-75 03/04/2029 03/04/2024, 03/13/2023, 04/19/2022, Additional history exists Tetanus booster 02/23/2031 02/23/2021, 07/24, 02/26/1997 Colonoscopy through age 75 04/12/203104/12, 04/12/2021, 04/12/2021, Additional history exists Hepatitis C screening for age 18-79 Completed 06/11/2013 Pneumococcal series for age 50+ Completed 07/22/2018, 07/04/2018, 07/18/2017 Zoster (shingles) series for age 50+ Completed 11/27/2018, 08/01/2018, 10/21/2017, Additional history exists DEXA/DXA scan for age 65+ Completed 2020, 03/27/2017, 06/11/2013, Additional history exists Hepatitis B series for 19+ Aged Out N o longer eligible based on patient's age to complete this topic Procedures Procedure Name Priority Date/Time Associated Diagnosis Comments XR SPINE LUMBAR 3 VIEWS Routine 04/08/2025 4:24 PM CDT Chronic bilateral low back pain with right-sided sciatica Osteopenia, unspecified location BUN Add On 04/06/2025 11:26 AM CDT Paroxysmal atrial fibrillation (HC) POTASSIUM Add On 04/06/2025 11:26 AM CDT Paroxysmal atrial fibrillation (HC) CREATININE Routine 04/06/2025 11:26 AM CDT Paroxysmal atrial fibrillation (HC) ALT (SGPT) Routine 04/06/2025 11:26 AM CDT Paroxysmal atrial fibrillation (HC) AST (SGOT) Routine 04/06/2025 11:26 AM CDT Paroxysmal atrial fibrillation (HC) XR MAMMO STELLA BILAT SCREEN Routine 03/17/2025 9:55 AM CDT Visit for screening mammogram LIPID PANEL W REFLEX MEASURED LDL Routine 03/04/2024 12:03 PM CDT Elevated cholesterol COLONOSCOPY SCREENING Routine 04/12/2021 9:57 AM CDT Positive fecal occult blood test XR DXA BONE DENSITY 2 SITES AXIAL Routine 03/02/2021 11:59 AM CDT Menopause ANTI HCV Routine 06/11/2013 12:35 PM LAUNDRY MANAGER Need for hepatitis C screening test from Last 3 Months or Most Recently Relevant to Health Maintenance Results * XR SPINE LUMBAR 3 VIEWS (04/08/2025 4:24 PM CDT) Anatomical Region Laterality Modality LUMBAR SPINE Computed Radiogr aphy 04/09/2025 6:31 AM CDT Impressions 04/09/2025 6:31 AM CDT Degenerative scoliosis, progressive when compared to the previous. No acute abnormality. Dictated by Toni Lewis MD @ 04/09/2025 6:31:53 AM (Electronically Signed) Narrative 04/09/2025 6:31 AM CDT For Patients: As a result of the Cures Act, medical imaging exams and procedure reports are released immediately into your electronic medical record. You may view this report before your referring provider. If you have questions, please contact your health care provider. INDICATION: Chronic bilateral low back pain TECHNIQUE: Lumbar spine 3 view. COMPARISON: 08/29/2013 FINDINGS: Bones: Convex left rotoscoliosis apex at L2 is progressive when compared to the previous. No fractures or significant bone lesions. No spondylolysis or spondylolisthesis. Joints: Mild chronic degenerative disc disease L2-3,, L3-4 and L4-5. Soft tissues: Unremarkable. Procedure Note Chris Lewis MD - 04/09/2025 For Patients: As a result of the Cures Act, medical imagingexams and procedure reports are released immediately into your electronicmedical record. You may view this report before your referring provider.If you have questions, please contact your health care provider. INDICATION: Chronic bilateral low back pain TECHNIQUE: Lumbar spine 3 view. COMPARISON: 08/29/2013 FINDINGS: Bones: Convex left rotoscoliosis apex at L2 is progressive when comparedto the previous. No fractures or significant bone lesions. Nospondylolysis or spondylolisthesis. Joints: Mild chronic degenerative disc disease L2-3,, L3-4 and L4-5. Soft tissues: Unremarkable. IMPRESSION: Degenerative scoliosis, progressive when compared to the previous. Noacute abnormality. Dictated by Toni eLwis MD @ 04/09/2025 6:31:53 AM (Electronically Signed) Karen Greco MD GENERAL IMAGING Final Res ult * BUN (04/06/2025 11:26 AM CDT) UREA NITROGEN (BUN) 18 7 - 25 mg/dL 04/09/2025 1:54 AM CDT [facility] Blood BLOOD SPECIMEN / Unknown [facility] / Unknown 04/06/2025 11:26 AM CDT 04/06/2025 11:26 AM CDT Juwan Meehan MD CHEMISTRY Final Resul t Performing Organization Address [facility]/ZIP Co de Phone Number [facility] [address] [address], * POTASSIUM (04/06/2025 11:26 AM CDT) POTASSIUM 4.6 3.5 - 5.3 mmol/L 04/09/2025 1:54 AM CDT [facility] Blood BLOOD SPECIMEN / Unknown [facility] / Unknown 04/06/2025 11:26 AM CDT 04/06/2025 11:26 AM CDT Juwan Meehan MD CHEMISTRY Final Resul t Performing Organization Address [facility] Co de Phone Number [facility] [address] [address], * CREATININE (04/06/2025 11:26 AM CDT) CREATININE 0.80 0.60 - 1.00 mg/dL 04/07/2025 5:10 AM CDT [facility] EGFR 78 > OR = 60 mL/min/1.73 m2 04/07/2025 5:10 AM CDT [facility] Blood BLOOD SPECIMEN / Unknown [facility] / Unknown 04/06/2025 11:26 AM CDT 04/06/2025 11:26 AM CDT us Juwan Meehan MD CHEMISTRY Final Resul t Performing Organization Address City/[facility]/ZIP Co de Phone Number [facility] [address] [address], [place] [phone] * ALT (SGPT) (04/06/2025 11:26 AM CDT) ALT 11 6 - 29 U/L 04/07/2025 5:10 AM CDT [facility] Blood BLOOD SPECIMEN / Unknown [facility] / Unknown 04/06/2025 11:26 AM CDT 04/06/2025 11:26 AM CDT us Juwan Meehan MD CHEMISTRY Final Resul t Performing Organization Address [facility] de Phone Number [facility] [address] [address], [place] [phone] * AST (SGOT) (04/06/2025 11:26 AM CDT) AST 17 10 - 35 U/L 04/07/2025 5:10 AM CDT [facility] Blood BLOOD SPECIMEN / Unknown [facility] / Unknown 04/06/2025 11:26 AM CDT 04/06/2025 11:26 AM CDT us Juwan Meehan MD CHEMISTRY Final Resul t Performing Organization Address [facility]/ZIP Co de Phone Number [facility] [address] [address], [place] [phone] * XR MAMMO STELLA BILAT SCREEN (03/17/2025 9:55 AM CDT) Anatomical Region Laterality Modality BREASTS, Breast Left, Breast Right Bilateral Mammography Impressions 03/17/2025 2:39 PM CDT There is no radiographic evidence for malignancy. Recommend annual mammograms. MAMMOGRAM ASSESSMENT: ACR 1 Negative PATIENTS: You will also receive a letter with your examination results in an easy to read format. If you have questions about your results, please contact your referring provider. Narrative 03/17/2025 2:39 PM CDT For Patients: As a result of the Century Cures Act, medical imaging exams and procedure reports are released immediately into your electronic medical record. You may view this report before your referring provider. If you have questions, please contact your health care provider. XR MAMMO STELLA BILAT SCREEN [[id number]] CLINICAL HISTORY: This is an asymptomatic 74 y.o. patient. INDICATION FOR EXAM: Mammogram Screening. TECHNIQUE: CC and MLO views were obtained. This study was evaluated with the assistance of Computer-Aided Detection. Breast Tomosynthesis was used in interpretation. COMPARISON FILM: Yes 03/12/24 [facility] 03/08/23 [facility] FINDINGS: The breasts are almost entirely fatty. There are no dominant masses, suspicious micro calcifications or areas of architectural distortion. Karen Greco MD MAMMO Final Res ult * LIPID PANEL W REFLEX MEASURED LDL (03/04/2024 12:03 PM CDT) CHOLESTEROL,TOTAL 122 100 - 199 mg/dL 03/04/2024 12:54 PM T [facility] Comment: Cholesterol, Total Reference Ranges Desirable <200 mg/dL Borderline 200-239 mg/dL High >=240 mg/dL TRIGLYCERIDES 104 <150 mg/dL 03/04/2024 12:54 PM T [facility] HDL CHOLESTEROL 58 >40 mg/dL 12:54 PM [facility] NON-HDL CHOLESTEROL 64 <145 mg/dl 03/04/2024 12:54 PM T [facility] CHOL/HDL RATIO 2.10 <4.50 03/04/2024 12:54 PM CDT [facility] LDL CHOLESTEROL 43 <=130 mg/dL 03/04/2024 12:54 PM CDT [facility] VLDL CHOLESTEROL 21 <=30 mg/dL 03/04/2024 12:54 PM CDT [facility] PROVIDER ORDERED STATUS RANDOM 03/04/2024 12:54 PM CDT [facility] Blood BLOOD SPECIMEN / Unknown Venipuncture / Unknown 03/04/2024 12:03 PM CDT 03/04/2024 12:03 PM CDT Karen Greco MD CHEMISTRY Final Res ult [facility] [address] [place] [address] * COLONOSCOPY (04/12/2021 9:49 AM CDT) 04/12/2021 9:49 AM CDT Narrative Transcriptions Haroldo Barroso MD - 04/12/2021 10:48 AM CDT Patient Name: Mary Gutiérrez Procedure Date: 04/12/2021 Gender: Female Date of : 1950 Admit Type: Outpatient Procedure: Colonoscopy Proceduralist: Haroldo Barroso MD , Marina Oviedo, RN(Nurse) Referring MD: Jordana Manuel Indications/Pre-Op Diagnosis: Positive fecal immunochemical test, Last colonoscopy: July 2000 Medications: Fentanyl 100 micrograms IV, Midazolam 2 mgIV, The level of sedation administered wasmoderate Procedure Description: The patient had risks, benefits and alternatives explained to andgave informed consent. The patient had a stable cardiopulmonary status and judged an adequate candidate for conscious sedation. The colonoscope was passed through the anus and advanced to thececum, identified by appendiceal orifice and ileocecal valve. Thecolonoscopy was performed without difficulty. The patient tolerated the procedure well. The quality of the bowel preparation was good. The ileocecal valve, appendiceal orifice, and rectum were photographed. Complications: No immediate complications. Estimated Blood Loss & Specimen: Estimated blood loss: none. Specimen collected - None Findings: The perianal and digital rectal examinations were normal. Scattered small-mouthed diverticula were found in the sigmoid colon. There was narrowing of the colon in association with the diverticular opening. Non-bleeding internal hemorrhoids were found during retroflexion. The hemorrhoids were moderate. The exam was otherwise without abnormality on direct and retroflexion views. Impressions/Post-Op Diagnosis: - Moderate diverticulosis in the sigmoid colon. There was narrowingof the colon in association with the diverticular opening. - Non-bleeding internal hemorrhoids. - The examination was otherwise normal on direct and retroflexionviews. - No specimens collected. Recommendation: - Patient has a contact number available for emergencies. The signsand symptoms of potential delayed complications were discussed with the patient. Return to normal activities tomorrow. Written discharge instructions were provided to the patient. - Resume previous diet. - Continue present medications. - Repeat colonoscopy in 10 years for screening purposes. Moderate Sedation: Moderate (conscious) sedation was administered by the endoscopy nurse and supervised by the endoscopist. The following parameters were monitored: oxygen saturation, heart rate, respiratory rate, blood pressure, adequacy of pulmonary ventilation and reponse to care. Please refer to the patient's medical record flowsheets and nursing notes for moderate sedation details. Total physician intraservice time was 15 minutes. Haroldo Barroso MD 04/12/2021 10:48:02 AM This report has been signed electronically. Note Initiated On: 04/12/2021 9:49 AM Procedure Code(s): --- Professional --- 82027, Colonoscopy, flexible; diagnostic, including collection of specimen(s) bybrushing or washing, when performed (separateprocedure) Diagnosis Code(s): --- Professional --- K64.8, Other hemorrhoids R19.5, Other fecal abnormalities K57.30, Diverticulosis of large intestine without perforation or abscess withoutbleeding CPT copyright 2020 [employer]. All rights reserved. The codes documented in this report are preliminary and upon track layer head reviewmay be revised to meet current compliance requirements. Scope In: 10:27:00 AM Scope Withdrawal Time 0 hours 7 minutes 25 seconds Scope Out: 10:40:28 AM us Haroldo Barroso MD PROCEDURE ORD Final Res ult * (ABNORMAL) XR DXA BONE DENSITY 2 SITES AXIAL (03/02/2021 11:59 AM CDT) Anatomical Region Laterality Modality Spine, HIPS, HIPL, HIPR Other Impressions 03/09/2021 12:55 PM CDT Osteopenia. RECOMMENDATIONS: The National Osteoporosis Foundation recommends pharmacologic treatment for patients with T-scores of -2.5 or less, patients with prior history of fragility fractures, or patients with 10-year probability of greater than 3% at hips or greater than 20% of suffering major osteoporotic fractures. Recommend continued optimization of calcium and vitamin D intake through dietary means and/or supplementation and regular exercise. Repeat scan recommended in 2-3 years. Mary Newman PA-C Narrative 03/09/2021 12:55 PM CDT XR DXA Bone Mineral Density (BMD) EXAM LOCATION: [address] [address] PATIENT NAME: Mary Gutiérrez DATE OF : 1950 EXAM DATE: 03/02/2021 REQUESTING PROVIDER: Jordana Manuel MD GENDER AT : female HEIGHT: 5' 1.46 (02/23/2021) WEIGHT: 164 lb 3.2 oz (02/23/2021) MENOPAUSAL STATUS: Postmenopausal RACE/ETHNICITY: White RISK FACTORS: Vitamin D Deficiency and White Race CURRENT MEDICATION FOR BONE LOSS: NONE INDICATION: Follow-up of existing osteopenia COMPARISON DATE(S): 2017 DXA scans are compared to prior studies for a patient only when the two (or more) studies were performed on the same scanner. It is not possible to compare data generated on one scanner to data from another because there are not standards in DXA equipment. This applies even if the two scanners are made by the same adobe maker. PROCEDURE: Dual-energy x-ray absorptiometry performed with routine technique. Reporting is completed in the form of a T-score. The T-score represents the standard deviation from peak bone mass based on young healthy adult. A Z-score is used for diagnosis in premenopausal women, and for men under the age of 50. FINDINGS: RESULT LUMBAR SPINE L1 - L4 BMD: 1.133 g/cm2 T-Score: -0.5 Z-Score: + 0.9 Comparison to most recent scan in 2017: Decrease 4.0%. RESULT FEMORAL NECK Left Total Femoral Neck BMD: 0.776 g/cm2 T-Score: -1.9 Z-Score: -0.4 RESULT TOTAL HIP Bilateral Total Hip BMD: 0.830 g/cm2 T-Score: -1.4 Z-Score: -0.2 Comparison to most recent scan in 2017: Decrease 5.5%. WHO criteria: Normal: T-score at or above -1 SD Osteopenia: T-score between -1.1 and -2.4 SD Osteoporosis: T-score at or below -2.5 SD FRAX RISK CALCULATION (USED FOR OSTEOPENIA ONLY): 10-year probability of major osteoporotic fracture: 10.8%. 10-year probability of hip fracture: 1.9%. us Jordana Manuel MD DEXA Final Result * ANTI HCV [[id number]] (06/11/2013 12:35 PM LAUNDRY MANAGER) ANTI HCV Non-reacti ve [facility] Blood specimen (specimen) BLOOD SPECIMEN / Unknown 06/11/2013 12:35 PM LAUNDRY MANAGER 06/11/2013 12:27 PM LAUNDRY MANAGER us Jordana Manuel MD SEND OUTS Final Result [facility] INTERNAL ZIP [address] [address] [place] [address] from Last 3 Months or Most Recently Relevant to Health Maintenance Insurance MEDICARE PART B HB ONLY [place] BL[place] MR PB ONLY [place] BLUE HB ONLY MEDICARE PART A HB ONLY Advance Directives Documents on File Type Date Recorded Patient Rn Medicare Expl anation Healthcare Directive 08/24/2010 011 * Full Code (Latest Code Status on File) Date Activated Date Inactivated Comments 08/09/2020 4:30 PM 2020 4:12 PM Question Answer Comments Code Status Discussion: Discussed * Full Code Date Activated Date Inactivated Comments 04/21/2020 2:23 PM 04/21/2020 5:51 PM Question Answer Comments Code Status Discussion: Per Existing Order * Full Code Date Activated Date Inactivated Comments 04/06/2020 4:06 PM 04/07/2020 3:01 PM Question Answer Comments Code Status Discussion: Discussed * Full Code Date Activated Date Inactivated Comments 01/15/2020 4:02 PM 01/18/2020 9:25 PM Care Teams [employer] Relationship Specialty Start Date End Date Karen Greco MD [address] [place] [id number] PCP - General Internal Medicine 03/13/23 Juwan Meehan MD [address] [facility] [address] [place] [address] Cardiology - Electrophysiology 03/13/23
[2025-05-09 06:47] VITALS: BP 148/84; PULSE 74; RESP 18; TEMP 35.9; O2SAT 97; BMI 30.2
--- NOTE | 2025-05-09 07:09 | ED_ITS ---
HPI - General Adult General Date Seen: 05/09/25 <Jamie Zamudio DO - Last Filed: 05/10/25 10:59> Chief complaint: Edema <Jamie Zamudio - Last Filed: 05/10/25 10:59> Stated complaint: facial swelling <Jamie Zamudio - Last Filed: 05/10/25 10:59> Time Seen by Provider: 05/09/25 07:03 <Jamie Leisa Robb - Last Filed: 05/10/25 10:59> Source: patient <Jamie Zamudio DO - Last Filed: 05/10/25 10:59> Mode of arrival: ambulatory <Jamie Zamudio - Last Filed: 05/10/25 10:59> Limitations: no limitations <Jamie Zamudio DO - Last Filed: 05/10/25 10:59> History of Present Illness HPI narrative: Patient is a 74-year-old female with a history of ischemic right MCA stroke, paroxysmal AFib, hyperlipidemia presenting to the emergency department for swelling of her lower lip. She states she woke up about an hour and a half earlier in notice swelling to her right lower lip. She waited at home to see if it would get better but has since noticed the swelling has gone all the way ac ross her lower lip. Has not noticed any swelling of her tongue. Has not noticed any swelling underneath her tongue. Does states she has a scratchy throat but that has been going on for a week. Does not feel short of breath. Denies chest pain, abdominal pain, headache, lightheadedness, dizziness, weakness, numbness, vision changes. Denies having symptoms like this before. No aware of any allergies. Has not had any recent medication changes. Denies any recent changes to soaps, detergents or any thing else that could be causing allergic reaction that she is aware of. Does not have a rash. Denies any family history of angioedema. <Jamie Crockettjun - Last Filed: 05/10/25 10:59> Related Data Home medications: Home Medications ?Medication ?Instructions ?Recorded ?Confirmed apixaban 5 mg tablet (Eliquis) 5 mg Q12H 06/30/2212/21 atorvastatin 10 mg tablet 10 mg 06/30/22 12/31/23 sotalol 80 mg tablet 80 mg Q12H 06/30/22 12/31/23 Previous Rx's ?Medication ?Instructions ?Recorded epinephrine 0.3 mg/0.3 mL 0.3 mg (0.3 mL) IM Q5-15M [place] #2 ea 05/09/25 injection, auto-injector (EpiPen 2-Kendrick) prednisone 20 mg tablet 40 mg (2 x 20 mg) PO DAILY # 8 tabs 05/09/25 <Jamie Zamudio DO - Last Filed: 05/10/25 10:59> Allergies/adverse reactions: Allergies Allergy/AdvReac Type Severity Reaction Status Date / Time No Known Drug Allergies Allergy Verified 05/09/25 06:51 <Jamie Zamudio DO - Last Filed: 05/10/25 10:59> Review of Systems Status of ROS: Reports: 10 or more systems reviewed and unremarkable except as noted in History and below <Jamie Zamudio DO - Last Filed: 05/10/25 10:59> [facility] Social History: Social History Smoking Status: Never smoker Non-prescribed substance use: denies use <Jamie Zamudio DO - Last Filed: 05/10/25 10:59> Exam Narrative: Exam Narrative: Const: Well-nourished, Well-developed, in no distress Eyes: PERRL, no conjunctival injection, and symmetrical lids HENT: Atraumatic external nose and ears. Moist mucous membranes. Diffuse Swel ling noted to lower lip. No swelling noted to the tongue or oropharynx. Mildly erythematous oropharynx Neck: Symmetric, trachea midline, No thyromegaly. CVS: RRR, No murmurs or gallops. Peripheral pulses 2+ and equal in all extremities RESP: Unlabored respiratory effort. Clear to auscultation bilaterally. GI: Nontender/Nondistended, No rebound or guarding. MSK:Extremities w/o deformity, Normal Active ROM Skin: Warm, Dry. No rashes or lesions. Neuro: Normal Muscle tone, No focal neurological deficits. Psych: Awake, Alert, & Oriented x3. Appropriate mood and affect. <Jamie Zamudio DO - Last Filed: 05/10/25 10:59> Const: Vital Signs, click to edit/add: Vital Signs - 24 hr 05/09/25 06:47 05/09/25 07:23 05/09/25 08:15 Temperature 96.7 F L Pulse Rate 72 Pulse Rate [Pulse Oximeter] 74 Respiratory Rate 18 Blood Pressure [Ri ght Upper Arm] 148/84 H Pulse Oximetry 97 96 96 Oxygen Delivery Me thod Room Air <Jamie Zamudio DO - Last Filed: 05/10/25 10:59> Vital Signs, click to edit/add: Vital Signs - 24 hr 05/09/25 06:47 05/09/25 07:23 05/09/25 08:15 Temperature 96.7 F L Pulse Rate 72 Pulse Rate [Pulse Oximeter] 74 Respiratory Rate 18 Blood Pressure [Ri ght Upper Arm] 148/84 H Pulse Oximetry 97 96 96 Oxygen Delivery Me thod Room Air <Cullen Vides MD - Last Filed: 05/09/25 10:49> Course Reevaluation(s) Time of Reevaluation #1: 08:06 <Cullen Vides MD - Last Filed: 05/09/25 10:49> Reevaluation #1: Patient hair did from previous ER physician, she presented here with the unilateral lower lip swelling, that is now improved. With epinephrine. Thinking now is this is angioedema. At this point we will give her some steroids, and antihistamines. As ordered by the previous ER physician. We will continue to watch her, plan would be going home in approximately 2 hours if she still stable, I will reassess her, her vital signs are stable this morning, she is talking and speaking to me normally. <Cullen Vides MD - Last Filed: 1 10:49> Time of Reevaluation #2: 09:40 <Cullen Vides MD - Last Filed: 05/09/25 10:49> Reevaluation #2: Patient doing better, her or lip swelling is almost totally gone away, or pharyngeal looks normal, tongue looks normal, good air entry bilaterally no whe ezing crackles noted she does have a dry cough, says she has had a sore throat for 7 days. Given the possibility of mycoplasma reviewed the chest x-ray. I explained to her that we had initially watch these for approximately 4 hours. If she is doing well discharge with steroids, along with antihistamines and an EpiPen would be indicated. As long she does not have rebound. She was comfortable this plan. Unfortunately, I ordered abdominal x-ray and air, patient had this, I went and talked her his told her this was on me. I discussed with her the monitor radiation was minimal, but should get the chest x-ray. As I am not able to see the entire part of the lungs with the abdominal x-ray. I will work to make this a no charge x-ray for her. <Cullen Vides MD - Last Filed: 05/09/25 10:49> Time of Reevaluation #3: 10:48 <Cullen Vides MD - Last Filed: 05/09/25 10:49> Reevaluation #3: Patient now is been watched for 4 hours she is doing well she has no complaints, her lips are back to normal. We will put on the course of pr ednisone epinephrine, I reviewed her chest x-ray findings with her, did not show any abnormality. <Cullen Vides MD - Last Filed: 05/09/25 10:49> Vital Signs Vital signs: Initial Vital Signs Temperature 96.7 F L 05/09/25 06:47 Temperature Source Temporal Artery Scan 05/09/25 06:47 Pulse Rate 74 05/09/25 06:47 Pulse Rhythm Regular 05/09/25 06:47 Respiratory Rate 18 05/09/25 06:47 Blood Pressure 148/84 H 05/09/25 06:47 Blood Pressure Mean 105 05/09/25 06:47 Blood Pressure Position Sitting 05/09/25 06:47 Pulse Oximetry 97 05/09/25 06:47 Oxygen Delivery Method Room Air 05/09/25 06:47 Vital Signs Temperature 96.7 F L 05/09/25 06:47 Pulse Rate 74 05/09/25 06:47 Respiratory Rate 18 05/09/25 06:47 Blood Pressure 148/84 H 05/09/25 06:47 Pulse Oximetry 97 05/09/25 06:47 Oxygen Delivery Method Room Air 05/09/25 06:47 Temperature 96.7 F L 05/09/25 06:47 Pulse Rate 72 05/09/25 10:57 Respiratory Rate 16 10/18/25 10:57 Blood Pressure 129/70 05/09/25 10:57 Pulse Oximetry 96 05/09/25 08:15 Oxygen Delivery Method Room Air 05/09/25 06:47 <Jamie Zamudio DO - Last Filed: 05/10/25 10:59> Initial Vital Signs Temperature 96.7 F L 05/09/25 06:47 Temperature Source Temporal Artery Scan 05/09/25 06:47 Pulse Rate 74 05/09/25 06:47 Pulse Rhythm Regular 05/09/25 06:47 Respiratory Rate 18 05/09/25 06:47 Blood Pressure 148/84 H 05/09/25 06:47 Blood Pressure Mean 105 05/09/25 06:47 Blood Pressure Position Sitting 05/09/25 06:47 Pulse Oximetry 97 05/09/25 06:47 Oxygen Delivery Method Room Air 05/09/25 06:47 Vital Signs Temperature 96.7 F L 05/09/25 06:47 Pulse Rate 74 05/09/25 06:47 Respiratory Rate 18 05/09/25 06:47 Blood Pressure 148/84 H 05/09/25 06:47 Pulse Oximetry 97 05/09/25 06:47 Oxygen Delivery Method Room Air 05/09/25 06:47 Temperature 96.7 F L 05/09/25 06:47 Pulse Rate 72 05/09/25 10:57 Respiratory Rate 16 05/09/25 10:57 Blood Pressure 129/70 05/09/25 10:57 Pulse Oximetry 96 05/09/25 08:15 Oxygen Delivery Method Room Air 05/09/25 06:47 <Cullen Vides MD - Last Filed: 05/09/25 10:49> Medications Administered Medications: Discontinued Medications Generic Name Dose Route Start Last Admin Trade Name Freq PRN Reason Stop Dose Admin Diphenhydramine HCl 50 mg 05/09/25 07:53 05/09/25 08:09 Diphenhydramine 25 Mg Capsule PO 05/09/25 07:54 50 mg ONCE ONE Administration Epinephrine HCl 0.3 mg 05/09/25 07:04 05/09/25 07:15 Epinephrine 0.3 Mg Pen IM 05/09/25 07:05 0.3 mg ONCE ONE Administration Prednisone 40 mg 05/09/25 07:53 05/09/25 08:09 Prednisone 20 Mg Tablet PO 05/09/25 07:54 40 mg ONCE ONE Administration <Jamie Zamudio DO - Last Filed: 05/10/25 10:59> Discontinued Medications Generic Name Dose Route Start Last Admin Trade Name Lazaro PRN Reason Stop Dose Admin Diphenhydramine HCl 50 mg 05/09/25 07:53 05/09/25 08:09 Diphenhydramine 25 Mg Capsule PO 05/09/25 07:54 50 mg ONCE ONE Administration Epinephrine HCl 0.3 mg 05/09/25 07:04 05/09/25 07:15 Epinephrine 0.3 Mg Pen IM 05/09/25 07:05 0.3 mg ONCE ONE Administration Prednisone 40 mg 05/09/25 07:53 05/09/25 08:09 Prednisone 20 Mg Tablet PO 05/09/25 07:54 40 mg ONCE ONE Administration <Cullen Vides MD - Last Filed: 05/09/25 10:49> Medical Decision Making MDM Narrative Medical decision making narrative: Patient is a 74-year-old female presenting to the emergency department for swelling of her lower lip. Does not have a rash. This time it seems unlikely this is an allergic reaction by will try epinephrine to see that helps with the swelling. Seems more likely to be angioedema. It is localized just to the lower lip. If epinephrine does not help will try TXA. At this time there is no signs of impending airway compromise. The medication she is on could be causing this. She has also been having viral symptoms for the past week again viruses can trigger angioedema. Will do COVID/flu/RSV swab. Patient also requested a strep swab. Patient does states she feels like her bottom lip swelling has improved. She states it does not feel nearly as tight. On exam I do single lip swelling also appears better. Hard to say if this is from the epinephrine or just time. <Jamie Zamudio DO - Last Filed: 05/10/25 10:59> Medical Records Medical records reviewed: Yes I reviewed the patient's medical records <Cullen Vides MD - Last Filed: 05/09/25 10:49> Lab Data Lab results reviewed: Yes I reviewed the patient's lab results <Cullen Vides MD - Last Filed: 05/09/25 10:49> Labs: Lab Results 05/09/25 Range/Units 07:22 SARS-CoV-2 (PCR) Negative SARS-CoV-2 (Negative) Influenza Type A (PCR) Negative PCR FLU A (Negative) Influenza Type B (PCR) Negative PCR FLU B (Negative) RSV (PCR) Negative PCR RSV (Negative) Group A Strep DNA NOT DETECTED (Not Detectd) <Jamie Zamudio DO - Last Filed: 05/10/25 10:59> Lab Results 05/09/25 Range/Units 07:22 SARS-CoV-2 (PCR) Negative SARS-CoV-2 (Negative) Influenza Type A (PCR) Negative PCR FLU A (Negative) Influenza Type B (PCR) Negative PCR FLU B (Negative) RSV (PCR) Negative PCR RSV (Negative) Group A Strep DNA NOT DETECTED (Not Detectd) <Cullen Vides MD - Last Filed: 05/09/25 10:49> Imaging Data Chest x-ray: Attestation: I have reviewed the pertinent imaging results. <Cullen Vides MD - Last Filed: 05/09/25 10:49> My impression: No acute findings, pacemaker noted. <Cullen Vides MD - Last Jaime ed: 05/09/25 10:49> Radiologist's impression: [place] [address] Diagnostic Imaging Report Patient: Mary Gutiérrez MR#: [id number] : 1950 Acct:[id number] Loc: ED Service Date: 05/09/[address]: Ordering Physician: Cullen Vides M.D. Date of Service: 05/09/25 Procedure(s): XR chest 2V Accession Number(s): [id number] cc: Karen Greco M.D.; Cullen Vides M.D.~ For Patients: As a result of the Century Cures Act, medical imaging exams and procedure reports are released immediately into your electronic medical record. You may view this report before your referring provider. If you have questions, please contact your health care provider. INDICATION: Cough and facial swelling COMPARISON: None. TECHNIQUE: PA and lateral 2 view chest. FINDINGS: Lung volumes are good. No focal or diffuse opacities. No pulmonary edema. No pleural effusion. No pneumothorax. No pneumomediastinum. Normal cardiomediastinal silhouette. Specifically, no findings of mediastinal or hilar adenopathy or mass effect. There is a left subclavian transvenous pacemaker with a right atrial lead. Bones: Normal for age. IMPRESSION: 1. Lungs clear. 2. There is a left subclavian transvenous pacemaker lead. Question SVC stenosis given the history of facial swelling. No mediastinal mass or mass effect. Dictated by Monika Mcnair MD @ 05/09/2025 10:04:08 AM (Electronically Signed) <Cullen Vides MD - Last Filed: 05/09/25 10:49> Discharge Plan Discharge Clinical Impression: Lip edema <Jamie Zamudio DO - Last Filed: 05/10/25 10:59> Patient Disposition: Home, Self-Care <Jamie Zamudio DO - Last Filed: 05/10/25 10:59> Condition: Stable <Jamie Zamudio DO - Last Filed: 05/10/25 10:59> Instructions: Angioedema (ED) <Jamie Zamudio DO - Last Filed: 05/10/25 10:59> Additional Instructions: At this time is hard to say the swelling was from angioedema, which is localized swelling the face and can be caused by medications, viral infection, or can happen without a known cause, or if it was from an allergic reaction. Either way I do believe he should have close follow-up with your primary care provider for the swelling. Return to emergency department for new or worsening symptoms. Start taking last 4 days on the steroids on 05/10/2025. Continue to take Benadryl 50 mg po Q6h as needed. <Jamie Zamudio DO - Last Filed: 05/10/25 10:59> Prescriptions: New prednisone 20 mg tablet 40 mg PO DAILY Qty: 8 0RF epinephrine [EpiPen 2-Kendrick] 0.3 mg/0.3 mL auto-injector 0.3 mg IM Q5-15M PRNQty: 2 0RF Rx Instructions: do not exceed 3 doses per episode No Action atorvastatin 10 mg tablet 10 mg Patient Comments: TAKE 1 TABLET (10 MG) BY MOUTH AT BEDTIME. sotalol 80 mg tablet 80 mg Q12H Patient Comments: TAKE ONE TABLET BY MOUTH (80MG) EVERY 12 HOURS Eliquis 5 mg tablet 5 mg Q12H <Jamie Zamudio DO - Last Filed: 05/10/25 10:59> Follow Up/Referrals: Karen Greco MD [Primary Care Provider, Internal Medicine] <Jamie Zamudio DO - Last Filed: 05/10/25 10:59> Stand Alone Forms: [facility] Info Instructions <Jamie Zamudio DO - Last Filed: 05/10/25 10:59>
[2025-05-09] MEDS: EPINEPHrine 0.3 MG PEN IM (07:15)
[2025-05-09 07:23] VITALS: O2SAT 96
[2025-05-09 08:02] LABS: Strep A DNA Probe* NOT DETECTED (Not Detectd)
[2025-05-09 08:14] LABS: PCR FLU A Negative PCR FLU A (Negative); PCR FLU B Negative PCR FLU B (Negative); PCR RSV Negative PCR RSV (Negative); SARS PCR* Negative SARS-CoV-2 (Negative)
[2025-05-09 08:15] VITALS: PULSE 72; O2SAT 96
--- NOTE | 2025-05-09 09:23 | CRLHL7_ITS ---
For Patients: As a result of the Century Cures Act, medical imaging exams and procedure reports are released immediately into your electronic medical record. You may view this report before your referring provider. If you have questions, please contact your health care provider. Indication: Cough. Technique: Two-view Comparison: None. Findings: Moderate to large stool burden in nondistended colon. No dilated small bowel or stomach. No organomegaly or abdominal mass. No pathologic calcifications. Multiple pelvic phleboliths. The lung bases are clear. Impression: Moderate to large stool burden. Dictated by Abimael Tay MD @ 05/09/2025 9:48:29 AM (Electronically Signed)
--- NOTE | 2025-05-09 09:47 | CRLHL7_ITS ---
For Patients: As a result of the Century Cures Act, medical imaging exams and procedure reports are released immediately into your electronic medical record. You may view this report before your referring provider. If you have questions, please contact your health care provider. INDICATION: Cough and facial swelling COMPARISON: None. TECHNIQUE: PA and lateral 2 view chest. FINDINGS: Lung volumes are good. No focal or diffuse opacities. No pulmonary edema. No pleural effusion. No pneumothorax. No pneumomediastinum. Normal cardiomediastinal silhouette. Specifically, no findings of mediastinal or hilar adenopathy or mass effect. There is a left subclavian transvenous pacemaker with a right atrial lead. Bones: Normal for age. IMPRESSION: 1. Lungs clear. 2. There is a left subclavian transvenous pacemaker lead. Question SVC stenosis given the history of facial swelling. No mediastinal mass or mass effect. Dictated by Monika Mcnair MD @ 05/09/2025 10:04:08 AM (Electronically Signed)
[2025-05-09 10:57] VITALS: BP 129/70; PULSE 72; RESP 16
== END 2025-05-09 10:58 | disposition home or self-care (01) ==
PROVIDERS: Student in an Organized Health Care Education/Training Program; Emergency Provider Family Medicine; PCP Internal Medicine
DX: K13.0 Diseases of lips (principal)
CPT/HCPCS: 71046; 74019; 87631; 87651; 94761; 96372; 99284; A9270; J0169; J7512